=== PATIENT | female | born 1995 | race Caucasian/White ===

== ENCOUNTER 2016-11-21 20:10 | Emergency (ER) | payer MEDICAID ==
[2016-11-21 22:46] VITALS: BP 122/77
[2016-11-21] MEDS ORDERED: Ketorolac 30 MG/ML SDV IVPUSH ONE (23:43)
[2016-11-21] MEDS ORDERED: Sodium Chloride 0.9% 1,000 ML IV SCH (23:45)
[2016-11-22] MEDS ORDERED: Ketorolac 60 MG/2 ML SDV IM ONE (00:13)
[2016-11-22] MEDS ORDERED: Ondansetron 4 MG Tab.DIS PO ONE (00:14)
--- NOTE | 2016-11-22 01:25 | EDM.PDOC ---
ED HPI GI/ABDOMINAL - General Chief Complaint: Abdominal Pain Stated Complaint: STOMACH PAIN/VOMITING/DIARRHEA FOR 4 DAYS Time Seen by Provider: 11/21/16 23:31 Source: Reports: Patient History Limitations: Reports: No limitations - History of Present Illness INITIAL COMMENTS - FREE TEXT/NARRATIVE: Abdominal cramps x4 days supply 21-year-old female presents emergency room with her family, complaints of abdominal pain starting on Monday with watery painful stools up to 15 times per day today's stooling has lessened but continues to have pain intermittent fever concerns of C. difficile. Timing/Duration: Reports: Hour(s): Location: generalized Quality: Reports: cramping Severity: moderate Improves with: Reports: defecating Worsens with: Reports: other Associated Symptoms (-Female): Reports: fever/chills, nausea/vomiting - Related Data Allergies/ADRs: Allergies Allergy/AdvReac Type Severity Reaction Status Date / Time No Known Allergies Allergy Verified 11/21/16 22:57 Home Meds: Home Meds Omeprazole [Omeprazole] 20 mg PO DAILY 11/21/16 [History] Past Medical History - Past Health History Medical/Surgical History: Denies Medical/Surgical History Respiratory History: Reports: Other (see below) Other Respiratory History: reactive airway Gastrointestinal History: Reports: Helicobacter pylori [employer] History: Reports: Dysfunctional uterine bleeding, Neurological History: Reports: Headaches, chronic Endocrine/Metabolic History: Reports: Obesity/BMI 30+ Hematologic History: Reports: Bleeding disorder Social & Family History - Tobacco Use Smoking Status *Q: Current Every Day Smoker Years of Tobacco use: 3 Packs/Tins Daily: 0.2 Used Tobacco, but Quit: Yes Month Tobacco Last Used: February Second Hand Smoke Exposure: No - Caffeine Use Caffeine Use: Reports: None - Recreational Drug Use Recreational Drug Use: No - Living Situation & Occupation Living situation: Reports: , with significant other, with family Occupation: employed (Lives in [place]) ED ROS GENERAL - Review of Systems Review Of Systems: See Below Constitutional: Reports: fever, chills, weakness, fatigue HEENT: Reports: No symptoms Respiratory: Reports: no symptoms Cardiovascular: Reports: No symptoms Endocrine: Reports: no symptoms GI/Abdominal: Reports: Abdominal pain, Decreased appetite, Nausea, Vomiting : Reports: no symptoms Musculoskeletal: Reports: no symptoms Skin: Reports: no symptoms Neurological: Reports: no symptoms Psychiatric: Reports: No symptoms Hematologic/Lymphatic: Reports: no symptoms Immunologic: Reports: no symptoms ED EXAM, GI/ABD - Physical Exam Exam: See Below Exam Limited By: No limitations General Appearance: alert, WD/WN, no apparent distress Eyes: bilateral: normal appearance, EOMI Ears: normal external exam, normal canal, hearing grossly normal, normal TMs Nose: normal inspection, normal mucosa, no blood Throat/Mouth: Normal inspection, Normal lips, Normal teeth, Normal gums, Normal oropharynx, Normal voice, No airway compromise Head: atraumatic, normocephalic Neck: normal inspection, supple, non-tender, full range of motion Respiratory/Chest: no respiratory distress, lungs clear, normal breath sounds, no accessory muscle use, chest non-tender Cardiovascular: normal peripheral pulses, regular rate, rhythm, no edema, no gallop, no JVD, no murmur, no rub GI/Abdominal: normal bowel sounds, soft, non tender, no organomegaly, no distention, no abnormal bruit, no mass (Female) Exam: Normal external exam, Normal speculum exam, Normal bimanual exam Rectal (Female) Exam: Deferred Back Exam: normal inspection, full range of motion, NT Extremities: normal inspection, normal range of motion, non-tender, normal capillary refill, no pedal edema Neurological: alert, oriented, CN II-XII intact, normal cognition, normal gait, normal reflexes, no motor/sensory deficits Psychiatric: normal affect, normal mood Skin Exam: Warm, Dry, Intact, Normal color, No rash Lymphatic: no adenopathy Course - Vital Signs Last Recorded V/S: Last Vital Signs Temp 35.9 C 11/21/16 22:44 Pulse 65 11/21/16 22:44 Resp 16 11/21/16 22:44 BP 122/77 11/21/16 22:44 Pulse Ox 99 11/21/16 22:44 - Orders/Labs/Meds Orders: Active Orders 24 hr Category Date Time Status Abdomen Pelvis wo Cont [CT] Stat Exams 11/22/16 00:36 Taken C DIFFICILE BY DNA [RM] Stat Lab 11/21/16 23:57 Ordered Labs: Laboratory Tests 11/21/16 11/21/16 11/21/16 Range/Units 23:41 23:41 23:57 WBC 14.3 H (4.5-11.0) K/uL RBC 5.27 (3.30-5.50) M/uL Hgb 15.4 H (12.0-15.0) g/dL Hct 44.4 (36.0-48.0) % MCV 84 (80-98) fL MCH 29 (27-31) pg MCHC 35 (32-36) % Plt Count 273 (150-400) K/uL Neut % (Auto) 68 H (36-66) % Lymph % (Auto) 23 L (24-44) % Morrison % (Auto) 8 H (2-6) % Eos % (Auto) 1 L (2-4) % Baso % (Auto) 0 (0-1) % Sodium 142 (140-148) mmol/L Potassium 3.9 (3.6-5.2) mmol/L Chloride 105 (100-108) mmol/L Carbon Dioxide 25 (21-32) mmol/L Anion Gap 12.3 (5.0-14.0) mmol/L BUN 14 (7-18) mg/dL Creatinine 0.9 (0.6-1.0) mg/dL Est Cr Clr Drug Dosing 77.55 mL/min Estimated GFR (MDRD) > 60 (>60) Glucose 84 (74-106) mg/dL Calcium 8.2 L (8.5-10.1) mg/dL Urine Color Urine Appearance Urine pH (4.5-8.0) Ur Specific [place] (1.008-1.030) Urine Protein (NEGATIVE) mg/dL Urine Glucose (UA) (NEGATIVE) mg/dL Urine Ketones (NEGATIVE) mg/dL Urine Occult Blood (NEGATIVE) Urine Nitrite (NEGATIVE) Urine Bilirubin (NEGATIVE) Urine Urobilinogen (NORMAL) mg/dL Ur Leukocyte Esterase (NEGATIVE) Urine RBC (0-5) Urine WBC (0-5) Ur Epithelial Cells Amorphous Sediment Urine Bacteria Urine Mucus Urine Other Urinalysis Comment Urine HCG, Qual Negative 11/22/16 Range/Units 00:41 WBC (4.5-11.0) K/uL RBC (3.30-5.50) M/uL Hgb (12.0-15.0) g/dL Hct (36.0-48.0) % MCV (80-98) fL MCH (27-31) pg MCHC (32-36) % Plt Count (150-400) K/uL Neut % (Auto) (36-66) % Lymph % (Auto) (24-44) % Morrison % (Auto) (2-6) % Eos % (Auto) (2-4) % Baso % (Auto) (0-1) % Sodium (140-148) mmol/L Potassium (3.6-5.2) mmol/L Chloride (100-108) mmol/L Carbon Dioxide (21-32) mmol/L Anion Gap (5.0-14.0) mmol/L BUN (7-18) mg/dL Creatinine (0.6-1.0) mg/dL Est Cr Clr Drug Dosing mL/min Estimated GFR (MDRD) (>60) Glucose (74-106) mg/dL Calcium (8.5-10.1) mg/dL Urine Color Yellow Urine Appearance Clear Urine pH 5.0 (4.5-8.0) Ur Specific [place] 1.020 (1.008-1.030) Urine Protein Negative (NEGATIVE) mg/dL Urine Glucose (UA) Normal (NEGATIVE) mg/dL Urine Ketones Negative (NEGATIVE) mg/dL Urine Occult Blood Negative (NEGATIVE) Urine Nitrite Negative (NEGATIVE) Urine Bilirubin Small (NEGATIVE) Urine Urobilinogen Normal (NORMAL) mg/dL Ur Leukocyte Esterase Negative (NEGATIVE) Urine RBC 5-10 H (0-5) Urine WBC 5-10 H (0-5) Ur Epithelial Cells Moderate Amorphous Sediment Few Urine Bacteria Few Urine Mucus Few Urine Other See note Urinalysis Comment Clue cells seen Urine HCG, Qual Meds: Medications Discontinued Medications Generic Name Dose Route Start Last Admin Trade Name Freq PRN Reason Stop Dose Admin Sodium Chloride 1,000 mls @ 999 mls/hr 11/21/16 23:45 Normal Saline IV [facility]ED [facility] Ketorolac Tromethamine 30 mg 11/21/16 23:43 11/22/16 00:46 Toradol IVPUSH 11/22/16 00:13 Not Given ONETIME ONE Ketorolac Tromethamine 60 mg 11/22/16 00:13 11/22/16 00:47 Toradol IM 11/22/16 00:14 60 mg ONETIME ONE Administration Ondansetron HCl 4 mg 11/22/16 00:14 11/22/16 00:46 Zofran Odt PO 11/22/16 00:15 4 mg ONETIME ONE Administration Departure - Departure Time of Disposition: 02:23 Disposition: Home, Self-Care 01 Condition: good Clinical Impression: Gastroenteritis, Bacterial vaginosis Instructions: Viral Gastroenteritis, Adult, [id number] Referrals: PCP,None [Primary Care Provider] - Forms: ED Department Discharge Care Plan Goals: Gastroenteritis -Zofran ODT 4 mg every 8 hours as needed for nausea and vomiting -Tylenol with Codeine one every 4-6 when necessary abdominal cramping and pain -Advised BRAT diet, bananas apples rice and toast, advance diet as tolerated, avoid greasy fried or spicy food -Push fluids drink at least 8-10 glasses of water per day -Have a primary care recheck in 3 days -Turn to clinic or ER sooner if has increased pain, fever, chills, nausea, vomiting, rash, or not improved Bacterial vaginosis -Metronidazole 500 mg by mouth twice a day x7 days Review of the labs, abdominal pelvis CT which was negative, stool cultures pending patient verbalized understanding of instructions - Problem List & Annotations (1) Bacterial vaginosis SNOMED Code(s): 191667379 Code(s): N76.0 - ACUTE VAGINITIS; B96.89 - OTH BACTERIAL AGENTS THE CAUSE OF DISEASES CLASSD [id number] Status: Acute Priority: Medium (2) Gastroenteritis SNOMED Code(s): 36402214 Code(s): K52.9 - NONINFECTIVE GASTROENTERITIS AND COLITIS, UNSPECIFIED Status: Acute Priority: High - Problem List Review Problem List Initiated/Reviewed/Updated: Yes - My Orders Last 24 Hours: My Active Orders 11/21/16 23:57 C DIFFICILE BY DNA [RM] Stat 11/22/16 00:36 Abdomen Pelvis wo Cont [CT] Stat - Assessment/Plan Last 24 Hours: My Active Orders 11/21/16 23:57 C DIFFICILE BY DNA [RM] Stat 11/22/16 00:36 Abdomen Pelvis wo Cont [CT] Stat Plan: Gastroenteritis -Zofran ODT 4 mg every 8 hours as needed for nausea and vomiting -Tylenol with Codeine one every 4-6 when necessary abdominal cramping and pain -Advised BRAT diet, bananas apples rice and toast, advance diet as tolerated, avoid greasy fried or spicy food -Push fluids drink at least 8-10 glasses of water per day -Have a primary care recheck in 3 days -Turn to clinic or ER sooner if has increased pain, fever, chills, nausea, vomiting, rash, or not improved Bacterial vaginosis -Metronidazole 500 mg by mouth twice a day x7 days Review of the labs, abdominal pelvis CT which was negative, stool cultures pending patient verbalized understanding of instructions
== END 2016-11-22 02:23 | disposition home or self-care (01) ==
LOC: JP.ED 20:10
DX: N76.0 Acute vaginitis (principal); K52.9 Noninfective gastroenteritis and colitis, unspecified; F17.210 Nicotine dependence, cigarettes, uncomplicated
CPT/HCPCS: 36415; 74176; 80048; 81001; 81025; 85025; 87046; 87804; 87899; 96372; 99284; A9270; J1885